=== PATIENT | female | born 1945 | race Caucasian/White ===

== ENCOUNTER → 2018-07-19 | Outpatient (CLI) | payer OTHER ==
[~2018-07-19] MED LIST: ACET-2041 PO; ALEN70TA47 PO; ATEN100T PO; ATOR20TA65 PO; LEVE500T19 PO; LOSA25TA16 PO; POTA-79 PO; RIVA20TA PO; SERT100T12 PO; TORS20TA4 PO; VITAMIN B12 PO
== END | disposition home or self-care (01) ==
LOC: RAH 14:15
PROVIDERS: ATTEND Family Medicine
DX: I67.2 Cerebral atherosclerosis (principal); R42 Dizziness and giddiness
CPT/HCPCS: 70450

== ENCOUNTER 2018-08-01 07:26 | Day surgery (SDC) | payer OTHER ==
[2018-07-28 14:28] VITALS: BP 104/49
[2018-07-28 14:41] LABS: BASOPHILS % (AUTO) 0.7 % (0.0-5.0); EOSINOPHILS % (AUTO) 1.6 % (0.0-8.0); HEMATOCRIT 35.9 % (36-48); LYMPHOCYTES % (AUTO) 24.7 % (21.0-51.0); MEAN CORPUSCULAR HEMOGLOBIN 33.2 pg (27.0-33.0); MEAN CORPUSCULAR HGB CONC 33.8 g/dL (32.0-36.0); MEAN CORPUSCULAR VOLUME 98.1 fL (79-99); MONOCYTES % (AUTO) 8.7 % (3.0-13.0); NEUTROPHILS % (AUTO) 64.3 % (40.0-77.0); PLATELET COUNT (AUTO) 137 K/uL (130-400); RED BLOOD CELL COUNT(AUTO) 3.66 MIL/uL (4.00-5.50); RED CELL DISTRIBUTION WIDTH 15.4 % (11.0-15.5)
[2018-07-28 14:50] LABS: CREATININE 1.1 mg/dL (0.5-1.5); POTASSIUM 3.9 mmol/L (3.5-5.1)
[2018-07-28 14:52] LABS: INR 1.26 (0.85-1.15); PARTIAL THROMBOPLASTIN TIME 37.9 SEC (26.3-35.5); PROTHROMBIN TIME 13.2 SEC (9.6-11.6)
[2018-08-01] VITALS (14 sets, daily range): BP systolic 76–160; BP diastolic 27–81
[~2018-08-01] VITALS: Ht 160 cm; Wt 53.9 kg
[~2018-08-01 07:26] MED LIST changes: +SODIUM CHLORIDE 0.9% 1000ML 1,000 ML IV SCH
[2018-08-01] MEDS ORDERED: PROPOFOL 10 MG/ML 20ML VIAL IV ONE (10:22)
== END 2018-08-01 12:15 | disposition home or self-care (01) ==
LOC: DAH 07:26
PROVIDERS: ATTEND Internal Medicine Cardiovascular Disease
DX: I48.4 Atypical atrial flutter (principal); I25.10 Atherosclerotic heart disease of native coronary artery without angina pectoris; Z95.1 Presence of aortocoronary bypass graft; I10 Essential (primary) hypertension; E78.5 Hyperlipidemia, unspecified; G40.909 Epilepsy, unspecified, not intractable, without status epilepticus; Z98.890 Other specified postprocedural states; Z95.5 Presence of coronary angioplasty implant and graft; Z79.899 Other long term (current) drug therapy; Z88.8 Allergy status to other drugs, medicaments and biological substances; I48.91 Unspecified atrial fibrillation; R00.1 Bradycardia, unspecified
CPT/HCPCS: 36415; 80048; 85025; 85610; 85730; 92960; 93005 ×2; A4606; J2704

== ENCOUNTER → 2019-02-02 | Outpatient (CLI) | payer OTHER ==
[~2019-02-02] MED LIST changes: +ALEN70TA10 PO; -ALEN70TA47 PO; -LOSA25TA16 PO; +LOSA25TA41 PO; -SODIUM CHLORIDE 0.9% 1000ML 1,000 ML IV SCH
== END | disposition home or self-care (01) ==
LOC: RAH 13:55
PROVIDERS: ATTEND Family Medicine
DX: Z12.31 Encounter for screening mammogram for malignant neoplasm of breast (principal)
CPT/HCPCS: 77067